=== PATIENT | female | born 1995 | race Caucasian/White ===

== ENCOUNTER 2024-08-01 12:59 | Outpatient (CLI) | payer BC ==
[2024-08-01 13:42] LABS: Bilirubin Negative (Negative); Blood, Urine 3+ (Negative); Clarity Clear (Clear); Glucose, Urine (Dipstick) Normal (Negative); Ketone, Urine Negative (Negative); Leukocyte 75 Leu/uL (Negative); Nitrite Negative (Negative); Protein, Urine (Dipstick) 20 mg/dL (Neg-Trace); RBC/HPF Greater than 50 HPF (0-3); Specific Gravity, Urine 1.012 (1.002-1.036); Squamous Epithelial 0-3 HPF (0-3); Urobilinogen Normal mg/dL (Less than 2)
[2024-08-01 13:43] LABS: Bacteria/HPF 1+ HPF (None Seen)
== END 2024-08-01 13:00 | disposition home or self-care (01) ==
LOC: LABBT 12:59
PROVIDERS: ATTEND Urology
DX: Z01.812 Encounter for preprocedural laboratory examination (principal); N20.0 Calculus of kidney
CPT/HCPCS: 81001; 87086

== ENCOUNTER 2024-08-08 09:39 | Day surgery (SDC) | payer BC ==
[2024-08-01 13:11] VITALS: BMI 21.7
[2024-08-08] MEDS ORDERED: Midazolam HCl 2 mg/2 ml Vial ONE (13:36)
[2024-08-08] MEDS ORDERED: fentaNYL PF 100 MCG/2 ML SYRINGE ONE (13:36)
[2024-08-08] MEDS ORDERED: Lidocaine 1% PF 5 ML VIAL ONE (13:36)
[2024-08-08] MEDS ORDERED: PROPOFOL 20 ML ONE (13:36)
[2024-08-08] MEDS ORDERED: Sodium Chloride 0.9% 100 ML ONE (13:44)
[2024-08-08] MEDS ORDERED: cefTRIAXone (ROCEPHIN) 1 GM VIAL ONE (13:44)
[2024-08-08] MEDS ORDERED: Ondansetron PF 4 MG/2 ML Vial ONE (14:07)
[2024-08-08] MEDS ORDERED: Dexamethasone 20 MG/5 ML VIAL ONE (14:07)
[2024-08-08] MEDS ORDERED: Ketorolac Tromethamine 30 MG (1 mL) VIAL ONE (14:32)
[2024-08-08] MEDS ORDERED: Meperidine HCl/PF 25 MG (1 mL) VIAL ONE (14:55)
[2024-08-08] MEDS ORDERED: Phenazopyridine HCl 100 MG TAB ONE (15:14)
[2024-08-08] MEDS ORDERED: Oxybutynin 5 MG TAB ONE (15:14)
[2024-08-13 20:07] LABS: CA Oxalate Dihydrate 50 % (.); CA Oxalate Monohydrate 30 % (.); Color Brown (.); Stone Weight 87 mg (.)
== END 2024-08-08 16:48 | disposition home or self-care (01) ==
LOC: SDC 09:39
PROVIDERS: ATTEND Urology
PROC: 0TC68ZZ Extirpation of Matter from Right Ureter, Via Natural or Artificial Opening Endoscopic (ICD-10-PCS; principal; 2024-08-08)
PROC: 0T768DZ Dilation of Right Ureter with Intraluminal Device, Via Natural or Artificial Opening Endoscopic (ICD-10-PCS; principal; 2024-08-08)
DX: N20.1 Calculus of ureter (principal); E03.9 Hypothyroidism, unspecified; Z90.710 Acquired absence of both cervix and uterus; Z88.0 Allergy status to penicillin; Z79.890 Hormone replacement therapy
CPT/HCPCS: 82365; 88300; C1894; C2617; J0696; J1100; J1885; J2175; J2250; J2405; J2704